=== PATIENT | female | born 1990 | race Caucasian/White ===

== ENCOUNTER → 2016-03-22 | Outpatient (CLI) | payer OTHER ==
--- NOTE | 2016-03-22 20:42 | WWHP ---
DATE OF SERVICE: 03/22/2016. CHIEF COMPLAINT: The patient is here for her routine gynecologic exam. HPI: This is a 25-year-old G0 with an LMP of 03/06/2016. She is using condoms for control and is declining any other method of control at this time. She is not interested in getting in the near future. She previously was on control pills up until about 2 years ago. She is happy with using condoms. She states her periods became slightly more irregular after discontinuing control pills and now are about every 4 to 6 weeks. She states she was not very consistent taking control pills the last time she was on control pills. Her last pelvic exam was about age 19. PAST MEDICAL HISTORY: Unremarkable. MEDICATIONS: None. ALLERGIES TO PENICILLIN WHICH CAUSED HIVES. PAST SURGICAL HISTORY: None. 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 SOCIAL HISTORY: She denies tobacco and drug use and socially drinks alcohol. She is single but has been with her boyfriend for 7 years and lives with him. She has had a total of 4 sexual partners in her lifetime. She now works at [employer] in [place]. FAMILY HISTORY: Grandmother had breast and ovarian cancer. Aunt also had breast cancer. Mother had coronary artery disease. She denies family history of cancer of the uterus or colon and denies family history of defects or mental retardation. REVIEW OF SYSTEMS: Weight has been stable. She denies respiratory, cardiac, or GI problems. PHYSICAL EXAM: Blood pressure 118/67. Height 5 feet 6 inches. Weight 176 pounds. Temperature 97.6, pulse 64. This is a well-developed, well-nourished white female who is alert and oriented x3 in no acute distress. HEENT is within normal limits. NECK: Supple without mass or thyromegaly. CHEST AND LUNGS: Clear to auscultation. HEART: Regular rate and rhythm. Breasts are without mass or discharge. Axillary exam is negative for adenopathy. BACK: Negative for CVA tenderness. ABDOMEN: Soft, nontender, without palpable masses. PELVIC EXAM: Normal external genitalia. Cervix and vagina appear normal. The cervix is slightly friable upon doing the Pap smear. A small amount of mucus at the back of vagina without odor. There is no cervical motion tenderness. The uterus is midposition, nongravid size and nontender. There are no palpable adnexal masses or tenderness. EXTREMITIES: Nontender. IMPRESSION: A 25-year-old gynecologically healthy female using condoms for control. PLAN: 1. Pap smear was performed. 2. Self-breast examination was discussed. 3. GC and Chlamydia screening has been obtained from the cervix. 4. STD prevention was discussed. 5. control options were discussed. She would like to continue using condoms at this time. 6. She will return in one year.
== END | disposition home or self-care (01) ==
LOC: WWCWWP 14:38
PROVIDERS: ATTEND Obstetrics & Gynecology
DX: Z11.3 Encounter for screening for infections with a predominantly sexual mode of transmission (principal)
CPT/HCPCS: 87491; 87591

== ENCOUNTER → 2017-11-14 | Outpatient (CLI) | payer BC ==
[2017-11-14 15:05] VITALS: BP 125/85; PULSE 73; TEMP 98.2; BMI 33.1
--- NOTE | 2017-11-14 15:46 | P.HPOB ---
History of Present Illness H&P Date: 11/14/17 Chief Complaint: The patient is here for her routine gynecologic exam. This is a 27-year-old G0 with an LMP of 03/17/2017. The patient states her menses have been about every 4 to 6 weeks after stopping control pills at age 23 until March 2017. She has not had menstrual periods since March 2017. She stopped using condoms for control around January 2017. She states she is not actively trying to get , but would not mind if she did get . Her partner does not pull out. She is declining anything for control. She has done several tests and they have been negative. The most recent tests was about 3 weeks ago. She had taken control pills from about age 16 to age 23. Her menarche was around age 16. She denies any significant nausea, breast tenderness or morning sickness. She also denies breast leakage or unusual hair growth on the face or abdomen. Review of Systems She is getting about 17 pounds over the last year. She denies respiratory, cardiac, or G.I. problems. Past Medical History Past Medical History: No Reported History Additional Past Medical History / Comment(s): PAST DESKTOP SUPPORT SPECIALIST HISTORY: She has no history of STDs. Menarche was at age 16. She used oral contraception from age 16 to 23. History of Any Multi-Drug Resistant Organisms: None Reported Past Surgical History: No Surgical Hx Reported Past Psychological History: No Psychological Hx Reported Smoking Status: Never smoker Past Alcohol Use History: Occasional (6-10 per month) Past Drug Use History: None Reported Additional History: She is single and has been with her boyfriend since 2009. She lives with him. 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. - Past Family History Mother Family Medical History: Coronary Artery Disease (CAD) Additional Family Medical History / Comment(s): And had breast cancer. Grandma had breast and ovarian cancer. Medications and Allergies Home Medications Medication Instructions Recorded Confirmed Type No Known Home Medications 11/14/17 11/14/17 History Allergies Allergy/AdvReac Type Severity Reaction Status Date / Time Penicillins Allergy Severe hives Unverified 11/14/17 15:01 Exam Vital Signs Temp Pulse BP 11/14/17 15:02 98.2 F 73 125/85 Intake and Output 11/14/17 11/14/17 11/14/17 06:59 14:59 22:59 Other: Weight 87.543 kg Height 5'4", BMI 33.1. This is a well-developed well-nourished white female who is alert and oriented times 3 in no acute distress. HEENT: Within normal limits. NECK: Supple without mass or thyromegaly. CHEST AND LUNGS: Clear to auscultation. HEART: Regular rate and rhythm. BREASTS: Are without mass or discharge. Breasts are nontender. AXILLARY EXAM: Negative for adenopathy. BACK: Negative for CVA tenderness. ABDOMEN: Soft, nontender, without palpable masses. PELVIC EXAM: Normal external genitalia. Cervix and vagina appear normal. There is no unusual discharge. There is no evidence of prolapse. The uterus is midposition, nongravid size and nontender. There are no palpable adnexal masses or tenderness. RECTAL EXAM: deferred EXTREMITIES: Nontender. IMPRESSION: 1. 27-year-old female with normal gynecologic exam. 2. Secondary amenorrhea for 8 months. Differential diagnosis will include thyroid dysfunction, , hyperprolactinemia, and PCOS. PLAN: 1. Pap smear was deferred since she had a normal one last year. 2. self breast awareness was discussed . 3. Blood tests will include TSH, hCG, and prolactin. 4. GC and Chlamydia screening from the cervix have been obtained. 5. I have recommended a daily multivitamin with folic acid. I have stressed the importance of this if there is any chance of forgetting . She understands that taking this may decrease the risk of certain defects. 6. She is declining any control at this time. If the amenorrhea workup is unremarkable, consider progestin treatment to initiate a period and consider cyclic progesterone type medication or oral contraception to regulate periods. 7. She'll also return in one year and PRN.
[2017-11-14 16:47] LABS: HCG,Quantitative Serum <2.4 mIU/mL
== END | disposition home or self-care (01) ==
LOC: WWCWWP 14:38
PROVIDERS: ATTEND Obstetrics & Gynecology
DX: N91.1 Secondary amenorrhea (principal)
CPT/HCPCS: 36415; 84146; 84443; 84702; 87491; 87591